=== PATIENT | female | born 1990 | race Hispanic/Latino ===

== ENCOUNTER → 2016-11-25 | Outpatient (REF) | payer OTHER ==
[~2016-11-25] MED LIST: IBUP80TA PO; PRENTAB7 PO
[2016-11-25 19:44] LABS: ALBUMIN 4.1 GM/DL (3.2-5.2); ALBUMIN/GLOBULIN RATIO 1.17 (1.00-1.93); ALKALINE PHOSPHATASE 88 U/L (45-117); ALT/SGPT 28 U/L (12-78); ANION GAP 9 MEQ/L (8-16); AST/SGOT 16 U/L (15-37); BILIRUBIN,TOTAL 0.3 MG/DL (0.2-1.0); BLOOD UREA NITROGEN 14 MG/DL (7-18); CALCIUM LEVEL 9.2 MG/DL (8.5-10.1); CARBON DIOXIDE LEVEL 27 MEQ/L (21-32); CHLORIDE LEVEL 108 MEQ/L (98-107); CREATININE FOR GFR 0.63 MG/DL (0.55-1.02); GLOMERULAR FILTRATION RATE > 60.0 (>60); GLUCOSE, FASTING 89 MG/DL (70-105); POTASSIUM SERUM 3.9 MEQ/L (3.5-5.1); SODIUM LEVEL 144 MEQ/L (136-145); T UPTAKE 32 % (30-39); THYROXINE (T4) 9.9 UG/DL (4.5-12.0); TOTAL PROTEIN 7.6 GM/DL (6.4-8.2)
[2016-11-25 19:47] LABS: BASO % 0.3 % (0.0-1.0); EOS # 0.2 K/mm3 (0.0-0.50); EOS % 2.9 % (0.0-3.0); LARGE UNSTAINED CELL # 0.1 K/mm3 (0.0-0.4); MEAN CORPUSCULAR HEMOGLOBIN 32.1 pg (27.0-33.0); MEAN CORPUSCULAR HGB CONC 35.8 g/dl (32.0-36.5); MEAN CORPUSCULAR VOLUME 89.7 fl (80.0-96.0); MONO # 0.3 K/mm3 (0.0-0.8); MONO % 3.7 % (0.0-5.0); NEUTROPHILS # 3.4 K/mm3 (1.8-7.7); NEUTROPHILS % 48.2 % (36.0-66.0); PLATELET COUNT, AUTOMATED 279 k/mm3 (150-450); RED CELL DISTRIBUTION WIDTH 13.6 % (11.5-14.5)
[2016-11-25 19:57] LABS: CALCIUM OXALATE CRYSTALS SMALL
[2016-11-25 21:07] LABS: FOLATE 15.4 NG/ML
== END ==
LOC: M SFHCLERA 14:40
PROVIDERS: ATTEND Family Medicine
DX: R53.83 Other fatigue (principal); E55.9 Vitamin D deficiency, unspecified

== ENCOUNTER 2017-03-22 22:28 | Inpatient (IN) | payer OTHER ==
[~2017-03-22] VITALS: Ht 154.9 cm; Wt 90.0 kg
[2017-03-22] MEDS ORDERED: METF500T PO (22:37)
[2017-03-22] MEDS ORDERED: MORPHINE 2 MG/ML 1ML SYRINGE IV ONE (23:30)
[2017-03-22] MEDS ORDERED: FAMOTIDINE IV BAG 20 MG in APPROPRIATE DILUENT 1 EA IV ONE (23:30)
[2017-03-22] MEDS ORDERED: ONDANSETRON 4MG/2ML VIAL (J2405) IV ONE (23:30)
[2017-03-22] MEDS ORDERED: NS 1,000 ML IV ONE (23:30)
[2017-03-23 00:10] LABS: BASO % 0.4 % (0.0-1.0); EOS # 0.1 K/mm3 (0.0-0.50); EOS % 0.6 % (0.0-3.0); LARGE UNSTAINED CELL # 0.1 K/mm3 (0.0-0.4); LYMPH # 2.3 K/mm3 (1.5-6.5); LYMPH % 17.6 % (24.0-44.0); MEAN CORPUSCULAR HGB CONC 36.1 g/dl (32.0-36.5); MEAN CORPUSCULAR VOLUME 91.5 fl (80.0-96.0); MONO # 0.5 K/mm3 (0.0-0.8); MONO % 3.8 % (0.0-5.0); NEUTROPHILS # 9.4 K/mm3 (1.8-7.7); NEUTROPHILS % 76.6 % (36.0-66.0); PLATELET COUNT, AUTOMATED 222 k/mm3 (150-450); RED CELL DISTRIBUTION WIDTH 13.3 % (11.5-14.5); WHITE BLOOD COUNT 12.3 K/mm3 (4.0-10.0)
[2017-03-23 00:19] LABS: INR 0.98
[2017-03-23 00:37] LABS: CONTROL LINE UCG INT CTR LINE PRESENT
[2017-03-23 00:40] LABS: CONTROL LINE HCG INT CTR LINE PRESENT
[2017-03-23] MEDS ORDERED: ISOVUE-370 76% 100ML VIAL (Q9967) As Ordered ONE (00:42)
[2017-03-23 00:48] LABS: ALBUMIN 3.7 GM/DL (3.2-5.2); ALBUMIN/GLOBULIN RATIO 0.88 (1.00-1.93); ALKALINE PHOSPHATASE 61 U/L (45-117); ALT/SGPT 24 U/L (12-78); ANION GAP 8 MEQ/L (8-16); AST/SGOT 14 U/L (15-37); BILIRUBIN,DIRECT < 0.1 MG/DL (0.0-0.2); BILIRUBIN,TOTAL 0.3 MG/DL (0.2-1.0); BLOOD UREA NITROGEN 17 MG/DL (7-18); CALCIUM LEVEL 8.9 MG/DL (8.5-10.1); CARBON DIOXIDE LEVEL 24 MEQ/L (21-32); CHLORIDE LEVEL 107 MEQ/L (98-107); CREATININE FOR GFR 0.62 MG/DL (0.55-1.02); GLOMERULAR FILTRATION RATE > 60.0 (>60); GLUCOSE, FASTING 122 MG/DL (70-105); POTASSIUM SERUM 3.6 MEQ/L (3.5-5.1); SODIUM LEVEL 139 MEQ/L (136-145); TOTAL PROTEIN 7.9 GM/DL (6.4-8.2)
--- NOTE | 2017-03-23 01:40 | REPUSA ---
CLINICAL HISTORY: Abdominal pain. TECHNIQUE: Multiple axial, sagittal and coronal CT images were obtained through the abdomen and pelvi s after administration of intravenous contrast material. COMMENTS: The liver is moderately enlarged with decreased attenuation without mass or defect. There is no intra or extrahepatic biliary ductal dilatation. The spleen is normal. The gallbladder is diffusely thicke rachele and enhancing. The pancreas is of normal contour and attenuation characteristics. There is no loida dence of adrenal mass. Both kidneys demonstrate prompt and equal nephrograms. The kidneys are normal in size, shape and conf iguration. There is no evidence of renal or ureteral mass. No renal or ureteral calculi are identifie d. There is no hydroureter or hydronephrosis. No evidence for appendicitis. There is no bowel wall thickening. No evidence for small or large cheyanne l obstruction. There is no evidence of abdominal ascites or lymphadenopathy. There is no evidence of intrinsic or extrinsic bladder mass. There is no pelvic ascites or lymphadeno russ. Bilateral tubal clips are noted. 3.2 cm right ovarian cyst. Images of the lung bases show no evidence of pleural or parenchymal mass. There are no pleural effusi ons. The bony structures are free of lytic or blastic lesions. Multilevel degenerative changes are seen in volving the thoracolumbar spine. Scattered calcifications are seen involving the aorta and major bran ches compatible with atherosclerosis. IMPRESSION: Hepatomegaly with fatty liver infiltration. Acute cholecystitis. Ileus. 3.2 cm right ovarian cyst. Thank you for your kind referral of this patient.
[2017-03-23] MEDS ORDERED: PIPERACILLIN/TAZOBACTAM SOD 3.375 GM in D5W MINI-BAG PLUS 50 ML IV ONE (03:00)
[2017-03-23] MEDS: MORPHINE 4 MG/ML 1ML SYRINGE IV PRN ×2 (03:10→04:00)
[2017-03-23] MEDS ORDERED: ONDANSETRON 4MG/2ML VIAL (J2405) IV ONE (03:15)
--- NOTE | 2017-03-23 04:20 | REPUSA ---
CLINICAL HISTORY: RUQ pain. TECHNIQUE: Realtime sonographic images were obtained in multiple projections. COMMENTS: The visualized liver is of uniform increased echo texture without evidence of mass or defect. There i s no intra or extrahepatic biliary ductal dilatation. The common bile duct measures 4 mm. The gallbl adder contains sludge and stones. The gallbladder wall is thickened reaching 7 mm and there is no per icholecystic fluid. The visualized portions of the pancreas are unremarkable. The right kidney measures 12.0 x 6.6 x 5.6 cm. IMPRESSION: Fatty liver infiltration. Cholelithiasis. Acute cholecystitis. Thank you for your kind referral of this patient.
[2017-03-23] MEDS ORDERED: diphenhydrAMINE INJ 50MG/ML VIAL (J1200) IV ONE (04:30)
[2017-03-23] MEDS ORDERED: ZOVI1TAB8 PO (05:35)
[2017-03-23] MEDS ORDERED: HYDROmorphone HCL 1 MG/ML SYRINGE (J1170) IV PRN ×4 (06:15→12:30)
[2017-03-23] MEDS ORDERED: PERCOCET 5MG/325MG TAB PO PRN (07:00)
[2017-03-23] MEDS ORDERED: METOCLOPRAMIDE INJ 10MG/2ML VIAL (J2765) IV PRN (07:00)
[2017-03-23] MEDS ORDERED: HYDROmorphone HCL 2 MG/ML 1ML VIAL (J1170) IV PRN ×2 (07:00→09:15)
[2017-03-23] MEDS ORDERED: PROMETHAZINE INJ 25 MG/ML VIAL (J2550) IV PRN (07:00)
[2017-03-23 08:23] LABS: BASO % 0.4 % (0.0-1.0); EOS # 0.1 K/mm3 (0.0-0.50); LARGE UNSTAINED CELL # 0.2 K/mm3 (0.0-0.4); LARGE UNSTAINED CELL % 2.4 % (0.0-4.0); LYMPH % 33.3 % (24.0-44.0); MEAN CORPUSCULAR HEMOGLOBIN 32.5 pg (27.0-33.0); MEAN CORPUSCULAR HGB CONC 35.3 g/dl (32.0-36.5); MEAN CORPUSCULAR VOLUME 92.1 fl (80.0-96.0); MONO # 0.3 K/mm3 (0.0-0.8); NEUTROPHILS % 58.9 % (36.0-66.0); PLATELET COUNT, AUTOMATED 210 k/mm3 (150-450); RED CELL DISTRIBUTION WIDTH 13.4 % (11.5-14.5); WHITE BLOOD COUNT 8.4 K/mm3 (4.0-10.0)
[2017-03-23] MEDS: LR 1,000 ML IV SCH ×3 (08:33→20:22)
[2017-03-23] MEDS: ONDANSETRON 4MG/2ML VIAL (J2405) IV PRN ×2 (08:34→20:22)
[2017-03-23] MEDS: PANTOPRAZOLE 40MG TAB (PROTONIX) PO SCH (08:34)
[2017-03-23 08:37] LABS: ALBUMIN 3.3 GM/DL (3.2-5.2); ALBUMIN/GLOBULIN RATIO 0.94 (1.00-1.93); ALKALINE PHOSPHATASE 59 U/L (45-117); ALT/SGPT 31 U/L (12-78); ANION GAP 7 MEQ/L (8-16); AST/SGOT 19 U/L (15-37); BILIRUBIN,TOTAL 0.3 MG/DL (0.2-1.0); BLOOD UREA NITROGEN 13 MG/DL (7-18); CARBON DIOXIDE LEVEL 23 MEQ/L (21-32); CHLORIDE LEVEL 108 MEQ/L (98-107); CREATININE FOR GFR 0.61 MG/DL (0.55-1.02); GLOMERULAR FILTRATION RATE > 60.0 (>60); GLUCOSE, FASTING 88 MG/DL (70-105); POTASSIUM SERUM 3.8 MEQ/L (3.5-5.1); SODIUM LEVEL 138 MEQ/L (136-145); TOTAL PROTEIN 6.8 GM/DL (6.4-8.2)
[2017-03-23 09:35] VITALS: BP 120/56
[2017-03-23] MEDS: KETOROLAC 30 MG/ML VIAL (J1885) IV PRN ×2 (09:54→16:14)
[2017-03-23] MEDS: PIPERACILLIN/TAZOBACTAM SOD 3.375 GM in D5W MINI-BAG PLUS 50 ML IV SCH ×3 (09:55→22:56)
[2017-03-23 12:00] VITALS: BP 126/59
[2017-03-23] MEDS: PERCOCET 5MG/325MG TAB PO PRN ×2 (13:27→20:22)
[2017-03-23 16:00] VITALS: BP 121/56
[2017-03-23 20:00] VITALS: BP 120/56
[2017-03-24] VITALS: BP 138/64
[2017-03-24 04:00] VITALS: BP 127/56
[2017-03-24] MEDS: PIPERACILLIN/TAZOBACTAM SOD 3.375 GM in D5W MINI-BAG PLUS 50 ML IV SCH ×2 (04:50→09:54)
[2017-03-24 06:53] LABS: MEAN CORPUSCULAR HEMOGLOBIN 32.9 pg (27.0-33.0); MEAN CORPUSCULAR HGB CONC 34.9 g/dl (32.0-36.5); MEAN CORPUSCULAR VOLUME 94.2 fl (80.0-96.0); RED CELL DISTRIBUTION WIDTH 12.9 % (11.5-14.5)
[2017-03-24 07:02] LABS: ALBUMIN 2.9 GM/DL (3.2-5.2); ALBUMIN/GLOBULIN RATIO 0.85 (1.00-1.93); ALKALINE PHOSPHATASE 52 U/L (45-117); ALT/SGPT 26 U/L (12-78); ANION GAP 6 MEQ/L (8-16); AST/SGOT 16 U/L (15-37); BILIRUBIN,TOTAL 0.4 MG/DL (0.2-1.0); BLOOD UREA NITROGEN 15 MG/DL (7-18); CALCIUM LEVEL 8.1 MG/DL (8.5-10.1); CARBON DIOXIDE LEVEL 27 MEQ/L (21-32); CHLORIDE LEVEL 107 MEQ/L (98-107); GLOMERULAR FILTRATION RATE > 60.0 (>60); GLUCOSE, FASTING 83 MG/DL (70-105); POTASSIUM SERUM 3.6 MEQ/L (3.5-5.1); SODIUM LEVEL 140 MEQ/L (136-145); TOTAL PROTEIN 6.3 GM/DL (6.4-8.2)
[2017-03-24] MEDS: LR 1,000 ML IV SCH (07:04)
[2017-03-24 08:00] VITALS: BP 138/68
[2017-03-24] MEDS: PANTOPRAZOLE 40MG TAB (PROTONIX) PO SCH (09:06)
[2017-03-24] MEDS ORDERED: SLF 3 ML SYR IV PRN (09:15)
[2017-03-24 12:00] VITALS: BP 119/58
[2017-03-24] MEDS ORDERED: SLF 3 ML SYR IV SCH (14:00)
[2017-03-24] MEDS ORDERED: NORCOTAB PO (16:01)
[2017-03-24] MEDS ORDERED: AUGM500T34 PO (16:01)
[2017-04-01] MEDS ORDERED: ZOVI1TAB8 PO (14:44)
[2017-04-01] MEDS ORDERED: PRENTAB13 PO (14:44)
--- NOTE | 2017-04-06 11:36 | HPE ---
DATE OF ADMISSION: 03/23/2017 CHIEF COMPLAINT: Epigastric pain and right upper quadrant pain. The patient is a 26-year-old female who presented with a 24-hour history of sharp stabbing epigastric pain/right upper quadrant pain radiating to her back. She has had several episodes of this in the past during her /at the end of her and has had significant severe pain that has been persistent since being in the emergency room. This has not gotten any better. She still is requiring some pain medications. She has had no fevers or chills. No acholic stools. No bilirubinuria. The patient's white count was 12,000 on evaluation/admission and her liver function tests were within normal limits. A CT scan the abdomen and pelvis was performed initially which was performed for this epigastric pain and revealed acute cholecystitis and possibly a localized ileus. A gallbladder ultrasound was performed which revealed gallstones with acute cholecystitis. The patient's past medical history is significant for history of . PHYSICAL EXAM: Reveals a 26-year-old female who looks stated age. HEENT is reveals an atraumatic, normocephalic head with extraocular movements intact. Pupils are equal and reactive to light. Sclerae nonicteric. Oropharynx clear without exudate or lesions. Neck: Supple without adenopathy. Lungs are clear to auscultation without crackles, wheezes or rhonchi. Heart is regular without murmur. Abdomen is soft, nondistended except she has some tenderness in the right upper quadrant without guarding, without rebound. Extremities: Warm, well-perfused. IMPRESSION AND PLAN: The patient has had right upper quadrant pain and discomfort since her but this was a severe episode and developed acute cholecystitis and my recommendation at this point is that she be admitted, given IV fluids, IV antibiotics and we will see how she does over the ensuing 12-24 hours. If she has significant improvement of her discomfort pain, we may be able to discharge her to home with plans on outpatient laparoscopic cholecystectomy as an elective situation. She understands and we will admit her and will plan on proceeding this as soon as possible.
--- NOTE | 2017-04-06 13:03 | DSES ---
DATE OF ADMISSION: 03/23/2017 DATE OF DISCHARGE: 03/24/2017 PRINCIPAL DIAGNOSIS: Acute cholecystitis. ASSOCIATED DIAGNOSIS: None. BRIEF HISTORY OF PRESENT ILLNESS: The patient is a 26-year-old female who presented with acute cholecystitis/right upper quadrant pain, gallstones and tenderness on exam. She was given IV fluids, IV antibiotics and had some significant improvement over the first 12 hours of admission and had some laboratory work in the morning that revealed a normal white count by that time and her pain had significantly improved over a very short time period. She was started on a clear liquid diet, advanced to a regular diet and was discharged home on pain medications and to follow up in the office for any additional questions or concerns.
== END 2017-03-24 17:25 | disposition home or self-care (01) | DRG 446 ==
LOC: M ED 23:50 → M ED INP 03-23 06:58 → M PED 03-23 09:33
PROVIDERS: ADMIT Surgery; ATTEND Surgery
DX: K81.0 Acute cholecystitis (principal)

== ENCOUNTER → 2017-04-03 | Day surgery (SDC) | payer OTHER ==
[~2017-04-03] VITALS: Ht 154.9 cm; Wt 99.8 kg
[~2017-04-03] MED LIST changes: +AUGM500T34 PO; +BUPIVACAINE/EPIN 0.25% 30 ML VIAL As Ordered ONE; +GLUCAGON FOR INJ 1 MG VIAL (J1610) As Ordered ONE; +GLYCOPYRROLATE INJ 0.2 MG/ML 2 ML VIAL As Ordered ONE; +HYDROmorphone HCL 2 MG/ML 1ML VIAL (J1170) As Ordered ONE; +KETOROLAC 30 MG/ML VIAL (J1885) IV SCH; +KETOROLAC 60 MG/2 ML VIAL (J1885) As Ordered ONE; +LIDOCAINE 1% SDV 5 ML VIAL SQ ONE; +LIDOCAINE 2% INJ 100 MG/5 ML SDV (FOR ANES.) As Ordered ONE; +LR 1,000 ML IV ONE; +LR 1,000 ML IV SCH; +METF500T PO; +METOCLOPRAMIDE INJ 10MG/2ML VIAL (J2765) As Ordered ONE; +METOCLOPRAMIDE INJ 10MG/2ML VIAL (J2765) IV ONE; +MIDAZOLAM INJ 2 MG/2 ML VIAL (J2250) As Ordered ONE; +NEOSTIGMINE 1MG/ML 5 ML SYRINGE (J2710) As Ordered ONE; +NORCO, ANEXSIA 5/325MG TABLET (HYDROcodone/ACETAMINOPHEN) PO PRN; +NORCOTAB PO; +ONDANSETRON 4MG/2ML VIAL (J2405) As Ordered ONE; +ONDANSETRON 4MG/2ML VIAL (J2405) IV PRN; +PRENTAB13 PO; +PROPOFOL 200 MG/20 ML VIAL As Ordered ONE; +ROCURONIUM BROMIDE 50 MG/5 ML VIAL As Ordered ONE; +ZOVI1TAB8 PO; +ceFAZolin 1GM INJ (J0690) As Ordered ONE; +ceFAZolin SOD 1 GM in D5W MINI-BAG PLUS 50 ML IV ONE; +dexameTHASONE 4 MG/ML 1ML VIAL (J1100) As Ordered ONE; +fentaNYL 250 MCG/5 ML INJECTION (J3010) As Ordered ONE
[2017-04-03] MEDS: fentaNYL 100 MCG/2 ML INJECTION (J3010) IV PRN ×3 (12:55→13:05)
[2017-04-03 15:15] VITALS: BP 132/62
--- NOTE | 2017-04-08 17:46 | RO ---
DATE OF PROCEDURE: 04/03/2017 PREOPERATIVE DIAGNOSIS: Symptomatic gallstones. POSTOPERATIVE DIAGNOSIS: Symptomatic gallstones. OPERATIVE PROCEDURE: Laparoscopic cholecystectomy. SURGEON: Ottoniel Smith MD YARD SWITCHER: ANESTHESIA: General endotracheal anesthesia. ESTIMATED BLOOD LOSS: Minimal. FLUIDS: Crystalloid. BRIEF PROCEDURE SUMMARY: The patient was taken to the operating room, was given general anesthesia. After adequate anesthesia and preoperative antibiotics were given, the patient was prepped and draped in the usual sterile fashion. Next, a supraumbilical incision was made with skin knife. Blunt dissection was carried down to fascia. Fascia was grasped with Gutierrez clamps, elevated a Veress needle placed into the abdominal cavity, insufflated to 15 mm of pressure. A dilating 10 mm trocar was placed at this time and under direct visualization an epigastric and two lateral trocars were placed. The gallbladder was grasped, retracted superiorly and numerous adhesions of the omentum up to the gallbladder were taken down with hook cautery. Eventually this was taken down and the neck of the gallbladder was cleared of peritoneum, both on the lateral side as well as on the anterior side. Eventually, once this was dissected free of surrounding tissue, the posterior aspect of the gallbladder was able to be visualized from the lateral aspect and then further dissection medially to expose the cystic artery and then a good window between the cystic artery and the cystic duct was created with some minimal blunt dissection and once this was created, a dissection of the gallbladder up to the cystic plate was performed and then a critical view of safety was visualized and then the cystic artery was clipped proximally, distally and transected. Then, the cystic duct was further mobilized at this point and revealed a good transition from the cystic duct to the neck of the gallbladder and this was clipped right at that junction proximally and distally and transected. Gallbladder then was taken from the gallbladder bed using electrocautery, placed in an EndoCatch bag and brought out through the umbilicus. Right upper quadrant was copiously irrigated until clear and all incisions closed with #4-0 Vicryl after the umbilical site was closed with #0 Vicryl at the fascial layer level. Steri-Strips and dry sterile dressing was applied. The patient was awakened from her anesthesia, extubated, brought to the recovery room awake, alert, hemodynamically stable. Sponge and needle counts correct times two.
== END | disposition home or self-care (01) ==
LOC: M SDC 10:36
PROVIDERS: ATTEND Surgery
DX: K80.18 Calculus of gallbladder with other cholecystitis without obstruction (principal); E28.2 Polycystic ovarian syndrome; Z79.899 Other long term (current) drug therapy; Z88.5 Allergy status to narcotic agent
CPT/HCPCS: 47562; 88304; J0690; J1100; J1170; J1885; J2250; J2405; J2710; J2765; J3010